=== PATIENT | male | born 1960 | race Caucasian/White ===

== ENCOUNTER → 2018-01-11 10:38 | Outpatient (CLI) | payer MEDICAID, SELFPAY ==
[2018-01-11 14:14] LABS: Hemoglobin A1C 8.2 % (4.5-6.2)
== END ==
PROVIDERS: PCP Family Medicine; Visit Provider Family Medicine
DX: E11.9 Type 2 diabetes mellitus without complications (principal)
CPT/HCPCS: 36415; 83036